=== PATIENT | male | born 1995 | race Hispanic/Latino ===

== ENCOUNTER 2024-09-03 17:43 | Inpatient (IN) | payer OTHER, SELFPAY ==
[2024-09-03] VITALS (14 sets, daily range): BP systolic 97–136; BP diastolic 70–90; BMI 21.7
[2024-09-03] MEDS: TYLENOL 1000 MG PO (13:45)
[2024-09-03] MEDS: MOTRIN 400 MG PO (13:46)
--- NOTE | 2024-09-03 15:02 | ED.GENMED ---
History of Present Illness
General
Chief Complaint: Chest Pain
Source: patient
Exam Limitations: none
Time Seen by Provider: 09/03/24 12:53
Nursing documentation reviewed up to this point in time: agreed with
History of Present Illness
History of Present Illness:
Patient without any significant past med history, presents to ED secondary to sudden onset of chest pain with shortness of breath, when he lifted an empty wheelbarrow out of a truck at work. Denies direct trauma. Denies nausea or vomiting. Denies
dizziness. Denies previous history of similar symptoms.
Review of Systems
Review of Systems
Allergies reviewed?: Yes
All Other Systems: ROS reviewed and negative except as documented in HPI and ROS
Constitutional: Reports no symptoms
Respiratory: Reports trouble breathing
Cardiac: Reports chest pain
ABD/GI: Reports no symptoms
Musculoskeletal: Reports no symptoms
Skin: Reports no symptoms
Neurological: Reports no symptoms
Phy Exam
Physical Exam
Physical Exam:
Physical Exam
General: mild painful distress, not acutely ill. afebrile
Head: nc/at. eomi
Neck: supple. no meningeal signs.
Heart: s1/s2 regular rate and rhythm, no murmur. equal radial pulses.
Lungs: mild respiratory distress. diminished breath sounds over right lung.
Abdomen: normal bowel sounds. not tender.
Neuro: alert and oriented. no focal neurological deficits
Skin: no rash
Psychiatric: well kept. interactive and cooperative
Extremities: no edema. no calf tenderness.
Scores
Heart Score for Chest Pain Patients
STEMI patient?: Not applicable
Course
Orders/Labs/Results
Orders:
Orders
09/03/24 12:28
Electrocardiogram (*1) Urgent
Reason for Study: Chest Pain
09/03/24 12:53
CR Chest - 2 Views Urgent
Comment:
Reason For Exam: chest pain
09/03/24 13:15
Acetaminophen [Tylenol] 1,000 mg PO NOW STA
Ibuprofen [Motrin] 400 mg PO NOW STA
09/03/24 14:54
IRAD CONSULT Urgent
Consulting Provider: Shivam Christopher
Was physician already notified: Yes
Reason for Consult/Procedure: Chest tube placement
Acknowledgement that appropriate orders are entered: Yes
09/03/24 14:59
Complete Blood Count/With Diff Urgent
Comprehensive Metabolic Panel Urgent
PT/INR [Prothrombin Time] Urgent
PTT Urgent
09/03/24 Dinner
Full Liquids
At Your Request: Full Participation
Does patient need a safe tray?: No
09/03/24 15:34
Admit/Transfer Patient As Directed
Co-Sign Provider:
Level of Care: Inpatient admission
Assign to:: Telemetry
Physician / Group: Rodger Barbosa
Diagnosis: Spontaneous Large Pneumothorax
Reason for Telemetry: Other
Other Reason for Telemetry: pneumothorax
Date to Stop Telemetry: 09/05/24
Time to Stop Telemetry: 11:00
Reason for Hospitalization: Spontaneous Large Pneumothorax
Expected length of stay greater than two midnights?: Yes
ELOS- Estimated Length of Stay in days: 3
I certify the patient meets the requirements for IP care: Yes
09/03/24 15:35
PRN Pain Medication Management As Directed
May give lesser potent ordered pain med per pt: Yes
preference::
Protocol:: Medication orders for pain may be administered in a
manner that supports deferring to patient preference
when the pt is:
- Requesting an ordered lesser potent pain medication.
Least to most potent pain medications are defined
as: acetaminophen < NSAID < tramadol < opioids
(morphine, oxycodone, hydromorphone).
- Requesting a lesser dose of the same medication IF
ORDERED.
- Requesting a less intrusive route of administration
if both routes are prescribed by the provider (PO <
IV).
09/03/24 15:38
Code Status As Directed
Resuscitation Status: Full Code
09/03/24 15:42
PULMONARY CONSULT Routine
Consulting Provider: Justin Harden
Was physician already notified: Yes
09/03/24 16:34
Chest Tube As Directed
Location: right
To suction: Yes
Suction to __ centimeters of water: -20
May ambulate with suction off?: Yes
Comment: RECORD OUTPUT FROM CHEST TUBE EVERY SHIFT
09/03/24 17:43
Ketorolac [Toradol] 30 mg IV NOW STA
09/03/24 18:49
Acetaminophen [Tylenol] 650 mg PO Q4HPRN PRN
Heparin 5,000 units SC Q8
Ketorolac [Toradol] 15 mg IV Q6HPRN PRN
09/03/24 18:49
Activity As Directed
Activity Level: With Assistance
Vital Signs As Directed
Frequency: Per unit guidelines
DX Deep Vein Thrombosis Video Routine
09/04/24 07:09
Basic Metabolic Panel IN AM
Complete Blood Count/No Diff IN AM
09/05/24 06:00
Basic Metabolic Panel IN AM
Complete Blood Count/No Diff IN AM
09/05/24 11:00
DC Protocol for Telemetry ONCE
09/06/24 06:00
Basic Metabolic Panel IN AM
Complete Blood Count/No Diff IN AM
Abnormal Lab Results
09/03/24
14:59
WBC 15.0 H 10^3/uL
(4.8-10.8)
MCH 32.0 H pg
(27.0-31.0)
Abs Immat Gran (auto) 0.1 H 10^3/uL
(0-0.05)
Absolute Neuts (auto) 12.5 H 10^3/uL
(1.4-6.5)
Absolute Monos (auto) 1.0 H 10^3/uL
(0.1-0.6)
Neutrophils % 83.4 H %
(42.2-75.2)
Lymphocytes % 9.1 L %
(20.5-51.1)
Creatinine 0.6 L mg/dL
(0.7-1.3)
Glucose 113 H mg/dl
(70-99)
Alkaline Phosphatase 134 H U/L
(38-126)
Total Protein 8.8 H g/dl
(6.3-8.2)
Albumin 5.4 H g/dl
(3.5-5.0)
09/03/24 14:59
09/03/24 14:59
Vital Signs
Initial and Last Documented VS:
Initial Vital Signs
Temp Pulse Resp BP Pulse Ox
98.1 F 108 18 132/90 94
09/03/24 12:32 09/03/24 12:32 09/03/24 12:32 09/03/24 12:32 09/03/24 12:32
Last Documented Vital Signs
Temp Pulse Resp BP Pulse Ox
97.6 F 86 16 118/77 98
09/04/24 11:30 09/04/24 11:30 09/04/24 11:30 09/04/24 11:30 09/04/24 11:30
MDM/Problems Addressed
MDM/Problems Addressed:
History, exam, and chest x-ray consistent with spontaneous large right-sided pneumothorax.
Discussed with NICOLE Chow - will place chest tube.
Will admit to hospitalist service afterwards. Pulmonary () notified via [employer].
*Critical Care Note
Total Time (30-74mins, 75-104mins- exclusive of procedures): Not Applicable
ED Attending Note
-
Portions of this chart may have been created with voice recognition software.� Occasional wrong word or��sound alike� substitutions may have occurred due to the inherent limitations of voice recognition software.
Discharge Plan
Departure
Patient Disposition: Admit
Date of Disposition: 09/03/24
Time of Disposition: 15:10
Admit to: Telemetry
Presentation/result/management discussed w/ accepting MD/DO: Hospitalist
Discharge Problem:
Pneumothorax
Interventions
Interventions:
*Risk Screen - Suicide Last Done: 09/03/24 12:32
*General Assessment Last Done: 09/03/24 12:32
*Neglect/Abuse Screening Last Done: 09/03/24 12:32
ED- Fall Risk Assessment Last Done: 09/03/24 18:28
*ED COVID-19 Vaccine History Last Done: 09/03/24 18:05
*Nursing Disposition Last Done: 09/03/24 18:28
ED- Cardiac Assessment Last Done: 09/03/24 13:45
Discharge Date and Time
Discharge Date/Time: 09/03/24 18:25
[2024-09-03 15:07] LABS: % Basophils 0.4 % (0-2); % Eosinophils 0.1 % (0-6); % Immature Granulocytes 0.5 % (0-0.5); % Lymphocytes 9.1 % (20.5-51.1); % Monocytes 6.5 % (1.7-9.3); % Neutrophils 83.4 % (42.2-75.2); Absolute Basophils 0.1 10^3/uL (0-0.2); Absolute Immature Granulocytes 0.1 10^3/uL (0-0.05); Absolute Lymphocytes 1.4 10^3/uL (1.2-3.4); Absolute Neutrophils 12.5 10^3/uL (1.4-6.5); Hematocrit 45.2 % (39.0-52.0); Hemoglobin 15.5 g/dL (13.0-18.0); Mean Corp Hgb Conc. 34.3 g/dL (33.0-37.0); Mean Corpuscular Volume 93.2 fL (80.0-94.0); Mean Platelet Volume 9.1 fL (7.4-10.4); Nucleated Red Blood Cells % 0 % (-); Platelet Count 283 10^3/uL (130-400); Red Blood Cell Count 4.85 10^6/uL (4.70-6.10); Red Cell Dist. Width 12.2 % (11.5-14.5)
--- NOTE | 2024-09-03 15:09 | HPS.HSE ---
Family Physician
-
Family Physician:
Chief Complaint
-
Chest pain/right side back pain
History of Present Illness
Patient is a 28-year-old male with no significant past medical history who reported that during work had acute onset of chest pain and right sided back pain associated with shortness of breath when lifting an empty wheelbarrow out of a truck at
work. Reports pain with deep breathing. Denies any other symptoms, no recent shortness of breath or chest discomfort.
Medical History
Past Medical History
Past Medical History: Reports None
Past Surgical History: Reports None
Social History
Tobacco: Non-smoker
Alcohol: Occasional (2-3x a week a few drinks)
Drug: Marijuana (smokes a few times a week)
Personal: Single
Living: With Roomate
Employment: Employed
Family History
Family History: Not pertinent
Allergies / Home Medications
Allergies reflects when Allergies were last updated in [facility].
Home Medications with original date entered in [facility]
Allergy/Medication List:
Allergies
Allergy/AdvReac Type Severity Reaction Status Date / Time
No Known Allergies Allergy Verified 09/03/24 12:36
Review of Systems
-
History Source: Patient
Constitutional: Reports No Symptoms
EENT: Reports No Symptoms
Respiratory: Reports Trouble Breathing (shortness of breath)
Cardiac: Reports Chest Pain
Abdomen/GI: Reports No Symptoms
: Reports No Symptoms
Musculoskeletal: Reports No Symptoms
Skin: Reports No Symptoms
Neurological: Reports No Symptoms
Endocrine: Reports No Symptoms
Hematologic/Lymphatic: Reports No Symptoms
Psych: Reports No Symptoms
Physical Exam
Vital Signs
Vital Signs
Temp Pulse Resp BP Pulse Ox
98.1 F 104 26 133/75 100
09/03/24 12:32 09/03/24 15:01 09/03/24 15:01 09/03/24 15:01 09/03/24 15:01
Physical Exam
General: Well Developed, Well Nourished, No Apparent Distress, Comfortable and Conversant
HEENT: NormoCephalic, Moist mucous membranes, Atraumatic, PERRLA, [place] Conjunctivae, Nose Appears Normal and Ears Appear Normal
Respiratory: Clear, Non Labored Respirations and Decreased Breath Sounds (decreased on right side); No Wheezes, Rales, Rhonchi or Crackles
Cardiac: S1/S2 and Regular Rhythm; No Murmur or Rub
Breast: Deferred by me
GI: Soft, Non Tender, Non Distended and Normal Bowel Sounds; No Organomegaly
Rectal: Deferred by Provider
Genito-urinary: Deferred by me
Musculoskeletal: No Clubbing, No Cyanosis and No Edema
Skin: Warm and IV/Catheter Site; No Rash
Neuro: Awake, Alert, AO x 3 and Nonfocal/grossly intact
Hematologic/Lymphatic: No Lymphadenopathy
Psych: Intact Judgment/Insight
Laboratory Results
-
09/03/24 14:59
Data Reviewed
-
Diagnostic Radiology: Report Reviewed by me (CXR: here is a very large right-sided pneumothorax. There is near complete collapse of the right lung. Left lung is clear. The heart is not enlarged. Mediastinal silhouette is within normal limits. The
left pulmonary vasculature is within normal limits. No acute osseous abnormality is seen.)
Medical Tests (Nuc Med, Echo, EKG etc): Report Reviewed by me (EKG: NORMAL SINUS RHYTHM)
Lab Data: Labs Reviewed by me (WBC 15.0, Neut 83.4)
Impression/Plan
-
IMPRESSION/PLAN:
#Spontaneous Pneumothorax First Episode
Acute onset of right sided back pain and chest pain associated with shortness of breath upon lifting empty wheelbarrow from truck
Denies any trauma
CXR: Very large right pneumothorax.
EKG: Normal Sinus Rhythm
- Admit to Telemetry
- Maintain SpO2 >94%
- Pain management regimen
- IR Consult for CT placement
- Pulmonary Consult for management of CT
Full Code
DVT Prophylaxis: Sq Heparin
[2024-09-03 15:22] LABS: ALT (SGPT) 33 U/L (0-50); AST (SGOT) 38 U/L (17-59); Albumin 5.4 g/dl (3.5-5.0); Alkaline Phosphatase 134 U/L (38-126); Blood Urea Nitrogen 11 mg/dl (9-20); Calcium 10.1 mg/dl (8.4-10.2); Carbon Dioxide 23 mmol/L (22-30); Chloride 102 mmol/L (98-107); Estimated Creatinine Clearance > 125 ml/min; Glucose 113 mg/dl (70-99); Sodium 139 mmol/L (135-145); Total Bilirubin 0.4 mg/dl (0.2-1.3); Total Protein 8.8 g/dl (6.3-8.2); eGFR > 60.00
--- NOTE | 2024-09-03 15:23 | W.PN.UPDATE ---
Update Note
Progress Note Update
This note serves as an addendum to the H&P by pump and blower operator Michelle Bonilla
HPI
28M no significant PMH seen at ER:
- sudden onset of Rt sided CP and back pain upon lifting while wheel mcgrath
- Denied trauma
- No prior HX PTX
Reviewed VS: Tachycardic , tachypneic, Normotensive POx 100% in NRM
PE
Gen: NAD
HEENT:wearing NRM
Neck: supple
Lungs: decreased BS at Rt lung
Cor: Tachycardic
Abdomen: benign exam
SOIL BIOLOGY TEACHER: AAO3
MS: defer
Psych: nl affect
Data
WCC 15
Pending INR
Pending CMP
CXR prelim read: Rt sided large PTX
EKG: NSR nl EKG
NO PRIOR DH t admission:
ASSESSMENT & PLAN
First episode of spontaneous large PTX of Rt lung
Hemodynamically stable
- PRN analgesia
- O2 to keep POx > 94%
- IR consulted for CT placement
- Pul consult for spontaneous PTX evaluation
- CTS for CT management : defer serial CXR to CTS
DVT Px: SQH
Full code
IP TLM
[2024-09-03 16:05] LABS: INR 0.96; PT 13.3 Sec (11.4-14.6)
[2024-09-03 16:06] LABS: APTT 32.4 Sec (23.4-35.0)
--- NOTE | 2024-09-03 16:33 | W.PN.UPDATE ---
Update Note
Progress Note Update
Right sided 14 [place]ian chest tube placed, with near complete reexpansion of lung. Patient tolerated procedure well.
[2024-09-03] MEDS: TORADOL 30 MG IV (18:07)
[2024-09-03] MEDS: TYLENOL 650 MG PO (20:26)
[2024-09-03] MEDS: HEPARIN 5000 UNITS SC (20:27)
[2024-09-04] MEDS: TORADOL 15 MG IV ×4 (00:15→23:04)
[2024-09-04] MEDS: HEPARIN SC (00:19)
[2024-09-04 03:00] VITALS: BP 115/80
--- NOTE | 2024-09-04 07:29 | W.PN.HOSP.TC ---
Today's Communication/Plan
-
Maintain chest tube
pain control
eventual trial clamp as per Pulm/IR
Assessment / Plan
Assessment / Plan
Physical Exam
General: No acute distress appears comfortable at this time
HEENT: NormoCephalic Atraumatic PERRLA
Respiratory: CTAB, right sided chest tube in place, some restriction in inspiration d/t pain
Cardiac: S1/S2 and Regular Rhythm; No Murmur or Rub
GI: Soft, Non Tender, Non Distended and Normal Bowel Sounds; No Organomegaly
Musculoskeletal: No Clubbing, No Cyanosis and No Edema
Skin: Warm and IV/Catheter Site; No Rash
Neuro: AOx3
Psych: Calm
28M with no significant past medical history who reported that during work he had acute onset of chest pain and right sided back pain associated with shortness of breath when lifting an empty wheelbarrow out of a truck at work. Reported pain with
deep breathing. Denies any other symptoms, no recent shortness of breath or chest discomfort. ED eval notable for spontaneous large right pneumothorax current resolved with right Chest Tube placed by IR.
#Spontaneous Pneumothorax First Episode
Acute onset of right sided back pain and chest pain associated with shortness of breath upon lifting empty wheelbarrow from truck
Denies any trauma
CXR: Very large right pneumothorax.
EKG: Normal Sinus Rhythm
- Telemetry
- Maintain SpO2 >94%
- Pain management regimen
- IR Consult appreciated Chest tube placed with complete resolution of PTX noted
- Pulmonary Consult appreciated
dvt ppx heparin
I spent a total of 45 minutes with the patient or on the floor. More than 50% of this time involved counseling and coordination of care.
Anticipated Discharge: 24 - 48 hours
Subjective/Interval History
-
Date of Service: September 04, 2024
No acute distress resting comfortably in bed. Chest tube in placed right side. Reports pain controlled with current pain regimen. Respiratory status stable on room air
Objective Data
-
Labs:
Laboratory Results
09/04/24
07:09
WBC Pending
Hgb Pending
Hct Pending
Plt Count Pending
Sodium Pending
Potassium Pending
Chloride Pending
Carbon Dioxide Pending
BUN Pending
Creatinine Pending
Glucose Pending
Calcium Pending
Vital Signs:
Vital Signs
Temp Pulse Resp BP Pulse Ox
97.9 F 69 14 115/80 99
09/04/24 03:00 09/04/24 03:00 09/04/24 03:00 09/04/24 03:00 09/04/24 03:00
I&O
09/03/24 09/04/24 09/05/24
06:59 06:59 06:59
Intake Total 120 / 120
Balance 120 / 120
[2024-09-04 07:30] VITALS: BP 119/71
[2024-09-04 07:52] LABS: Hematocrit 43.1 % (39.0-52.0); Hemoglobin 15.1 g/dL (13.0-18.0); Mean Corpuscular Hgb 32.1 pg (27.0-31.0); Mean Corpuscular Volume 91.7 fL (80.0-94.0); Mean Platelet Volume 9.7 fL (7.4-10.4); Platelet Count 253 10^3/uL (130-400); Red Cell Dist. Width 12.1 % (11.5-14.5); White Blood Cell Count 9.4 10^3/uL (4.8-10.8)
[2024-09-04] MEDS: HEPARIN 5000 UNITS SC ×3 (08:17→23:02)
[2024-09-04 08:20] LABS: Blood Urea Nitrogen 11 mg/dl (9-20); Calcium 9.6 mg/dl (8.4-10.2); Carbon Dioxide 27 mmol/L (22-30); Chloride 102 mmol/L (98-107); Estimated Creatinine Clearance > 125 ml/min; Glucose 105 mg/dl (70-99); Potassium 4.5 mmol/L (3.5-5.1); Sodium 140 mmol/L (135-145); eGFR > 60.00
--- NOTE | 2024-09-04 10:21 | CON.PUL ---
Consultation
Consultation Request
Date/Time Consultation Requested: 09/03/24
Date/Time Consultation Performed: 09/04/24
Performing Provider: Samantha
Reason for Consultation: PTx
Medical History
-
History of Present Illness:
Patient is a 28-year-old male with no significant past medical history presenting to ER for acute onset of right sided chest pain that began the day of admission. This is associated with shortness of breath, pain with deep breathing. He notes
that it was triggered by heavy lifting of an empty wheelbarrow. Chest x-ray obtained in the ER demonstrating spontaneous pneumothorax, chest tube placed by IR. He has never had previous pneumothorax in the past. He is a non-smoker but does use
marijuana.
Past Medical History
Past Medical History: None
Past Surgical History: None
Social History
Tobacco: Non-smoker
Alcohol: None
Drug: Marijuana
Family History
Family History: Reviewed & Not Pertinent
Allergies / Home Medications
Allergies
Allergy/AdvReac Type Severity Reaction Status Date / Time
No Known Allergies Allergy Verified 09/03/24 12:36
Home Medications
�Medication �Instructions �Recorded �Confirmed �Last Taken �Type
No Meds [No Current Medications] 09/03/24 09/03/24 Unknown History
Review of Systems
-
History Source: Patient
All other systems: Negative unless noted
Vitals / Labs / Diagnostic Testing
Vital Signs
Temp Pulse Resp BP Pulse Ox
98.3 F 79 16 119/71 98
09/04/24 07:30 09/04/24 07:30 09/04/24 07:30 09/04/24 07:30 09/04/24 07:30
Lab Data
09/04/24 07:09
09/04/24 07:09
Laboratory Results
09/03/24
14:59
PT 13.3
INR 0.96
APTT 32.4
Diagnostic Testing:
Physical Exam
-
HEENT: Normocephalic, Anicteric and Moist Mucous Membranes
Cardiovascular: S1/S2 and Regular Rhythm
Respiratory: Clear, Non-Labored Respirations and Other (chest tube)
GI: Soft, Non Distended and Non Tender
Neurology: Awake, Alert, Oriented and No Motor Deficits
Skin: Warm, Dry and Good Color
General: Comfortable and Other (NAD)
Assessment
-
Patient is a 28-year-old male with no significant past medical history presenting to ER for acute onset of right sided chest pain that began the day of admission. This is associated with shortness of breath, pain with deep breathing. He notes
that it was triggered by heavy lifting of an empty wheelbarrow. Chest x-ray obtained in the ER demonstrating spontaneous pneumothorax, chest tube placed by IR. We are consulted for evaluation.
Acute right sided spontaneous pneumothorax status post chest tube placement 09/03 by IR
Acute onset right-sided chest pain, pleuritic
Shortness of breath
Leukocytosis, mild
Marijuana use
Plan
No oxygen was needed on admission, currently saturating >90% on RA
No prior history of lung disease is noted
Suspect patient has spontaneous PTX from cough, possibly THC use
CXR/CT reviewed, repeat CXR today post placement
If doing well, can trial clamp/removal in next 24 hours
Pain control, can ambulate in room
Will need outpatient pulmonary evaluation in our office for PFTs and 6MWT
Reviewed with patient
We will follow
Diagnostic Data
Chest X-Ray: 09/03/24 Very large right pneumothorax.
CT Scan:
Echo:
PFT's:
Reports and relevant images were personally reviewed.
Total time spent on this consultation __50__ minutes which includes review of history, physical exam, medications, laboratory data, personal review of imaging, extensive review of outpatient records, discussion with care team and respiratory therapy.
[2024-09-04 11:30] VITALS: BP 118/77
[2024-09-04 15:50] VITALS: BP 127/87
[2024-09-04 19:15] VITALS: BP 112/74
[2024-09-04 23:30] VITALS: BP 121/75
[2024-09-05 03:15] VITALS: BP 114/68
--- NOTE | 2024-09-05 07:08 | W.PN.HOSP.TC ---
Today's Communication/Plan
-
chest tube clamp as per pulm
pain control
monitor resp status
possible discharge tomorrow if chest tube can be removed by then
Assessment / Plan
Assessment / Plan
Physical Exam
General: No acute distress appears comfortable at this time
HEENT: NormoCephalic Atraumatic PERRLA
Respiratory: CTAB, right sided chest tube in place, some restriction in inspiration d/t pain
Cardiac: S1/S2 and Regular Rhythm; No Murmur or Rub
GI: Soft, Non Tender, Non Distended and Normal Bowel Sounds; No Organomegaly
Musculoskeletal: No Clubbing, No Cyanosis and No Edema
Skin: Warm and IV/Catheter Site; No Rash
Neuro: AOx3
Psych: Calm
28M with no significant past medical history who reported that during work he had acute onset of chest pain and right sided back pain associated with shortness of breath when lifting an empty wheelbarrow out of a truck at work. Reported pain with
deep breathing. Denies any other symptoms, no recent shortness of breath or chest discomfort. ED eval notable for spontaneous large right pneumothorax current resolved with right Chest Tube placed by IR.
#Spontaneous Pneumothorax First Episode
Acute onset of right sided back pain and chest pain associated with shortness of breath upon lifting empty wheelbarrow from truck
Denies any trauma
CXR: Very large right pneumothorax.
EKG: Normal Sinus Rhythm
- Telemetry
- Maintain SpO2 >94%
- Pain management regimen
- IR Consult appreciated Chest tube placed with complete resolution of PTX noted
- Pulmonary Consult appreciated chest tube clamped follow up CXR remains stable, possible discharge tomorrow
dvt ppx heparin
I spent a total of 40 minutes with the patient or on the floor. More than 50% of this time involved counseling and coordination of care.
Anticipated Discharge: Within 24 hours
Subjective/Interval History
-
Date of Service: September 05, 2024
No acute distress. Overall reports feeling well. Pleuritic chest pain persists but controlled with current pain regimen. Chest tube clamped as per pulm, respiratory status remains stable room air
Objective Data
-
Labs:
Laboratory Results
09/05/24
06:00
WBC Pending
Hgb Pending
Hct Pending
Plt Count Pending
Sodium Pending
Potassium Pending
Chloride Pending
Carbon Dioxide Pending
BUN Pending
Creatinine Pending
Glucose Pending
Calcium Pending
Vital Signs:
Vital Signs
Temp Pulse Resp BP Pulse Ox
98.0 F 82 16 114/68 98
09/05/24 03:15 09/05/24 03:15 09/05/24 03:15 09/05/24 03:15 09/05/24 03:15
I&O
09/04/24 09/05/24 09/06/24
06:59 06:59 06:59
Intake Total 120 / 120 1380 / 1380
Balance 120 / 120 1380 / 1380
[2024-09-05 07:53] VITALS: BP 110/71
[2024-09-05] MEDS: HEPARIN 5000 UNITS SC ×2 (07:58→16:53)
[2024-09-05 08:06] LABS: Hematocrit 44.9 % (39.0-52.0); Hemoglobin 15.3 g/dL (13.0-18.0); Mean Corp Hgb Conc. 34.1 g/dL (33.0-37.0); Mean Corpuscular Hgb 32.6 pg (27.0-31.0); Mean Corpuscular Volume 95.7 fL (80.0-94.0); Mean Platelet Volume 9.7 fL (7.4-10.4); Platelet Count 264 10^3/uL (130-400); Red Blood Cell Count 4.69 10^6/uL (4.70-6.10); Red Cell Dist. Width 12.4 % (11.5-14.5); White Blood Cell Count 9.2 10^3/uL (4.8-10.8)
[2024-09-05 08:32] LABS: Blood Urea Nitrogen 16 mg/dl (9-20); Calcium 9.5 mg/dl (8.4-10.2); Carbon Dioxide 28 mmol/L (22-30); Chloride 104 mmol/L (98-107); Estimated Creatinine Clearance > 125 ml/min; Glucose 95 mg/dl (70-99); Potassium 4.6 mmol/L (3.5-5.1); Sodium 142 mmol/L (135-145); eGFR > 60.00
[2024-09-05 10:54] VITALS: BP 121/80
--- NOTE | 2024-09-05 13:07 | PTCARENOTE ---
patient reports 'twinges of pain' with deep breath or coughing. denied need for analgesia. tolerating diet, chest tube maintained, no evidence of leak or crepitus, vss, will continue to monitor.
--- NOTE | 2024-09-05 13:50 | W.PN.PUL3 ---
Today's Communication / Plan
-
clampled chest tube
CXR 4-5pm and in AM
possibly DC chest tube in AM.
Assessment
-
Patient is a 28-year-old male with no significant past medical history presenting to ER for acute onset of right sided chest pain that began the day of admission. This is associated with shortness of breath, pain with deep breathing. He notes
that it was triggered by heavy lifting of an empty wheelbarrow. Chest x-ray obtained in the ER demonstrating spontaneous pneumothorax, chest tube placed by IR. We are consulted for evaluation.
Acute right sided spontaneous pneumothorax status post chest tube placement 09/03 by IR
Acute onset right-sided chest pain, pleuritic
Shortness of breath
Leukocytosis, mild
Marijuana use
Plan
No oxygen was needed on admission, currently saturating >90% on RA
No prior history of lung disease is noted
Suspect patient has spontaneous PTX from cough, possibly THC use
CXR/CT reviewed, repeat CXR today post placement
Chest tube with no airleak with cough or deep inspiration
CXR 09/05/2024, showed no evidence for Pneumothorax
Pain control, can ambulate in room
-
Chest tube clamped 09/05/2024 145PM, repeat CXR at 4pm and tomorrow in AM. If no recurrent ptx then will DC tube at that time.
-
Advised to abstain from smoking marijuana and strenous activity for at least 3-4 weeks.
Will need outpatient pulmonary evaluation in our office for PFTs and 6MWT, possibly a CT chest as well.
Reviewed with patient
We will follow
Diagnostic Data
Chest X-Ray: 09/03/24 Very large right pneumothorax.
CT Scan:
Echo:
PFT's:
Reports and relevant images were personally reviewed.
Subjective Data
-
Date of Service:
Date of Service: September 05, 2024
Chief Complaint: Pulmonary Follow Up (Pneumothorax)
Subjective:
Denies any complaints.
Review of Systems
Cardiopulmonary: Dyspnea (n), Dyspnea on Exertion (n) and Chest Pain (n)
Objective Data
Data Reviewed
Vital Signs / I&O / Oxygen:
Vital Signs
Temp Pulse Resp BP Pulse Ox
97.8 F 82 17 121/80 97
09/05/24 10:54 09/05/24 10:54 09/05/24 10:54 09/05/24 10:54 09/05/24 10:54
Intake and Output
09/04/24 09/05/24 09/06/24
06:59 06:59 06:59
Intake Total 120 / 120 1380 / 1380
Balance 120 / 120 1380 / 1380
SaO2 97
Nasal Cannula flow liters per 15
minute
Physical Exam
General: Comfortable
HEENT: Normocephalic
Cardiovascular: S1-S2
Respiratory: Non-Labored Respirations and Chest Tube (no air leak)
GI: Soft and Non Distended
Neurology: Awake, Alert, AO x 3 and No Motor Deficits
Skin: Warm
Labs/Micro/Reports
Lab Data
09/05/24 07:07
09/05/24 07:07
[2024-09-05 14:48] VITALS: BP 125/84
--- NOTE | 2024-09-05 15:27 | PTCARENOTE ---
Addendum entered by Monica Michele RN 09/05/24 17:20:
patient transferred to chair with help with chest tube. chest tube clamped since Dr. Harden clamped it at 1350, for CXR at 1600, will continue to monitor.
Original Note:
patient transferred to chair with help with chest tube. chest tube clamped since Dr. Harden clamped it, for CXR at 1600, will continue to monitor.
--- NOTE | 2024-09-05 17:28 | CM ---
Alert awake oriented patient who lives with his Anne-Marie and 3 children who lives in a 2 story home with 5 step to enter and 10 steps to bed and bathroom. He is independent in driving and in all activities of daily living.He was offered VN he
declined need.He was given Domitila Steven handout. Spoke with MALICK Johnson about no insurance . She said she saw him and he needs to provide information to her to submit hopsital coverage.
No VN hx / No SNF history
Pharmacy [facility] [id number]
PCP none Domitila Steven handout given
PLAN Home no needs
[2024-09-05] MEDS: TORADOL 15 MG IV (18:41)
[2024-09-05 23:40] VITALS: BP 115/80
[2024-09-06 07:10] VITALS: BP 114/77
[2024-09-06] MEDS: HEPARIN 5000 UNITS SC (07:28)
--- NOTE | 2024-09-06 09:03 | W.PN.HOSP.TC ---
Addendum entered and electronically signed by Jennifer Curry MD 09/06/24 18:02:
Repeat X-ray noted possible small right apical pneumothorax following removal of chest tube
-hold discharge for now
-repeat CXR ordered for AM
-CXR to be repeated stat if worsening SOB/respiratory status develops
Addendum entered and electronically signed by Jennifer Curry MD 09/06/24 16:31:
chest tube removed by IR
Repeat chest X-ray pending, patient ok for discharge if repeat CXR remains neg for Pneumothorax
Original Note:
Today's Communication/Plan
-
discharge today following chest tube removal by IR
Assessment / Plan
Assessment / Plan
Physical Exam
General: No acute distress appears comfortable at this time
HEENT: NormoCephalic Atraumatic PERRLA
Respiratory: CTAB, right sided chest tube in place, some restriction in inspiration d/t pain
Cardiac: S1/S2 and Regular Rhythm; No Murmur or Rub
GI: Soft, Non Tender, Non Distended and Normal Bowel Sounds; No Organomegaly
Musculoskeletal: No Clubbing, No Cyanosis and No Edema
Skin: Warm and IV/Catheter Site; No Rash
Neuro: AOx3
Psych: Calm
28M with no significant past medical history who reported that during work he had acute onset of chest pain and right sided back pain associated with shortness of breath when lifting an empty wheelbarrow out of a truck at work. Reported pain with
deep breathing. Denies any other symptoms, no recent shortness of breath or chest discomfort. ED eval notable for spontaneous large right pneumothorax current resolved with right Chest Tube placed by IR.
#Spontaneous Pneumothorax First Episode
Acute onset of right sided back pain and chest pain associated with shortness of breath upon lifting empty wheelbarrow from truck
Denies any trauma
CXR: Very large right pneumothorax.
EKG: Normal Sinus Rhythm
- Telemetry
- Maintain SpO2 >94%
- Pain management regimen
- IR Consult appreciated Chest tube placed with complete resolution of PTX noted
- Pulmonary Consult appreciated chest tube clamped CXR's stable >12hr since clamping
-Planned for chest tube discontinuation with IR today, medically stable for discharge home following removal.
dvt ppx heparin
Total Time Preparing Discharge __40 minutes including examination of the patient, summary of the hospital stay, instructions for continuing care to all relevant caregivers; and preparation of discharge records, prescriptions, and referral
forms if necessary.
Anticipated Discharge: Today
Subjective/Interval History
-
Date of Service: September 06, 2024
no acute distress sitting up comfortably bed. Overall reports feeling well. Denies new acute issues. Stable respiratory status room air, eager to go home
Objective Data
-
Vital Signs:
Vital Signs
Temp Pulse Resp BP Pulse Ox
97.9 F 95 19 114/77 96
09/06/24 07:10 09/06/24 07:10 09/06/24 07:10 09/06/24 07:10 09/06/24 07:10
I&O
09/05/24 09/06/24 09/07/24
06:59 06:59 06:59
Intake Total 1380 / 1380 750 / 750
Output Total 900 / 900
Balance 1380 / 1380 -150 / -150
--- NOTE | 2024-09-06 12:51 | W.PN.PUL3 ---
Today's Communication / Plan
-
Doing well, stable on RA
Chest tube clamped >12 hours, CXR with resolved ptx
Discontinue chest tube, discussed with IR
Discharge planning per team to follow
OP FU recommended
Assessment
-
Patient is a 28-year-old male with no significant past medical history presenting to ER for acute onset of right sided chest pain that began the day of admission. This is associated with shortness of breath, pain with deep breathing. He notes
that it was triggered by heavy lifting of an empty wheelbarrow. Chest x-ray obtained in the ER demonstrating spontaneous pneumothorax, chest tube placed by IR. We are consulted for evaluation.
Acute right sided spontaneous pneumothorax status post chest tube placement 09/03 by IR
Acute onset right-sided chest pain, pleuritic
Shortness of breath
Leukocytosis, mild
Marijuana use
Plan
No oxygen was needed on admission, currently saturating >90% on RA
No prior history of lung disease is noted
Suspect patient has spontaneous PTX from cough, possibly THC use
CXR/CT reviewed, repeat CXR today post placement
Chest tube with no airleak with cough or deep inspiration
CXR 09/05/2024, showed no evidence for Pneumothorax
Pain control, can ambulate in room
-
Chest tube clamped 09/05/2024 145PM, repeat CXR at 4pm and tomorrow in AM.
Reviewed, ptx remains resolved
If no recurrent ptx then will DC tube at that time.
Discussed with IR-discontinue tube today
-
Advised to abstain from smoking marijuana and strenuous activity for at least 3-4 weeks.
Will need outpatient pulmonary evaluation in our office for PFTs and 6MWT, possibly a CT chest as well.
Reviewed with patient
Discharge planning per team
Diagnostic Data
Chest X-Ray: 09/03/24 Very large right pneumothorax.
Repeat CXR-resolved
CT Scan:
Echo:
PFT's:
Reports and relevant images were personally reviewed.
Total time spent on this encounter __40__ minutes which includes review of history, physical exam, medications, laboratory data, personal review of imaging, extensive review of outpatient records, discussion with care team and respiratory therapy.
Subjective Data
-
Date of Service:
Date of Service: September 06, 2024
Chief Complaint: Pulmonary Follow Up (Pneumothorax)
Subjective:
Doing well, stable on RA
Ambulating in room
Chest tube clamped
Objective Data
Data Reviewed
Vital Signs / I&O / Oxygen:
Vital Signs
Temp Pulse Resp BP Pulse Ox
97.9 F 95 19 114/77 96
09/06/24 07:10 09/06/24 07:10 09/06/24 07:10 09/06/24 07:10 09/06/24 07:10
Intake and Output
09/05/24 09/06/24 09/07/24
06:59 06:59 06:59
Intake Total 1380 / 1380 750 / 750
Output Total 900 / 900
Balance 1380 / 1380 -150 / -150
SaO2 96
Nasal Cannula flow liters per 15
minute
Physical Exam
General: Comfortable
HEENT: Normocephalic
Cardiovascular: S1-S2
Respiratory: Non-Labored Respirations and Chest Tube (no air leak)
GI: Soft and Non Distended
Neurology: Awake, Alert, AO x 3 and No Motor Deficits
Skin: Warm
Labs/Micro/Reports
Lab Data
09/05/24 07:07
09/05/24 07:07
--- NOTE | 2024-09-06 14:06 | PN.IRAD.UPD ---
Update Note - IRAD
- -
went bedside at 1430 to remove right sided chest tube. cleaned, prepped and draped patient. removed tube with no complaints from patient and dressed with optifoam and vasigauze
[2024-09-06 15:12] VITALS: BP 131/82
--- NOTE | 2024-09-06 16:03 | CM ---
CM following re: discharge planning.
Reviewed pt's chart, met with pt.
According to MD pt will be discharged home today. Pt is aware and he stated his mother will transport home.
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 Pt reports he has been living in [place] for 10 years, undocumented immigrant from [place].
D/C plan: home no needs. Mother to transport.
[2024-09-06] MEDS: HEPARIN SC ×3 (16:05→23:50)
--- NOTE | 2024-09-06 17:59 | PTCARENOTE ---
Chest tube pulled by IR at 15:30, Dr Curry notified. CXR ordered for 17:00. CXR results at 17:30 showed small right pneumothorax. Dr Curry notified and d/c order cancelled. Repeat CXR ordered for tomorrow morning 09/07/24. Pt without signs/symptoms of
respiratory distress. Results explained to patient, patient agreeable to stay until tomorrow. Will continue to monitor.
[2024-09-06] MEDS: TYLENOL 650 MG PO (20:10)
[2024-09-06 23:37] VITALS: BP 134/80
--- NOTE | 2024-09-07 07:44 | W.PN.HOSP.TC ---
Today's Communication/Plan
-
discharge
Assessment / Plan
Assessment / Plan
Physical Exam
General: No acute distress appears comfortable at this time
HEENT: NormoCephalic Atraumatic PERRLA
Respiratory: CTAB, right sided chest tube in place, some restriction in inspiration d/t pain
Cardiac: S1/S2 and Regular Rhythm; No Murmur or Rub
GI: Soft, Non Tender, Non Distended and Normal Bowel Sounds; No Organomegaly
Musculoskeletal: No Clubbing, No Cyanosis and No Edema
Skin: Warm and IV/Catheter Site; No Rash
Neuro: AOx3
Psych: Calm
28M with no significant past medical history who reported that during work he had acute onset of chest pain and right sided back pain associated with shortness of breath when lifting an empty wheelbarrow out of a truck at work. Reported pain with
deep breathing. Denies any other symptoms, no recent shortness of breath or chest discomfort. ED eval notable for spontaneous large right pneumothorax current resolved with right Chest Tube placed by IR.
#Spontaneous Pneumothorax First Episode
Acute onset of right sided back pain and chest pain associated with shortness of breath upon lifting empty wheelbarrow from truck
Denies any trauma
CXR: Very large right pneumothorax.
EKG: Normal Sinus Rhythm
- Telemetry
- Maintain SpO2 >94%
- Pain management regimen
- IR Consult appreciated Chest tube placed with complete resolution of PTX noted
- Pulmonary Consult appreciated chest tube clamped CXR's stable >12hr since clamping
-Chest tube discontinued 09/06 post chest tube removal noted small right apical pneumothorax- stable on repeat CXR noted following morning 09/07
Medically stable for discharge, repeat CXR with primary care provider in 1 week recommended
dvt ppx heparin
Medically stable for discharge home with outpatient follow up recommendations.
Total Time Preparing Discharge __40 minutes including examination of the patient, summary of the hospital stay, instructions for continuing care to all relevant caregivers; and preparation of discharge records, prescriptions, and referral
forms if necessary.
Anticipated Discharge: Today
Subjective/Interval History
-
Date of Service: September 07, 2024
Seen and examined at bedside. No acute distress. reports feeling well. Denies new acute issues. Eager to go home.
Objective Data
-
Vital Signs:
Vital Signs
Temp Pulse Resp BP Pulse Ox
98.0 F 90 17 134/80 97
09/06/24 23:37 09/06/24 23:37 09/06/24 23:37 09/06/24 23:37 09/06/24 23:37
I&O
09/06/24 09/07/24 09/08/24
06:59 06:59 06:59
Intake Total 750 / 750 1020 / 1020
Output Total 900 / 900
Balance -150 / -150 1020 / 1020
[2024-09-07] MEDS: HEPARIN 5000 UNITS SC (08:07)
[2024-09-07 08:13] VITALS: BP 118/77
--- NOTE | 2024-09-07 09:54 | W.DCSUMMARY ---
Discharge Summary
Discharge Data
Date of Admission: 09/03/24
Date of Discharge: 09/07/24
-
Pending Results: No
Discharge Plan
-
Patient Disposition: Home (Routine Discharge)
Discharge Diagnosis/Procedures: Right Sided Spontaneous Pneumothorax treated with chest tube since removed.
Small residual right Apical Pneumothorax, stable
Condition: Good
Diet: Regular
Activity: No strenuous activity
Additional Activity: avoid marijuana and strenuous activity for at least 3 weeks
Driving Restrictions: As prior to admission
Bathing Restrictions: None
Others Tests: Follow up with primary care provider in 1 week of discharge for repeat Chest X-ray to follow up small right apical pneumothorax
Follow up with Pulmonology in 2-4 weeks of discharge for
-pulmonary function tests
-6 minute walk test
-CT chest
Activity Restrictions/Additional Instructions:
Please follow up with primary care provider in 1 week of discharge and Pulmonology in 2-4 weeks of discharge.
Tylenol and Ibuprofen have been prescribed as needed for pain. These medications are available over the counter.
Please take medications as prescribed/recommended and follow up with primary care provider and/or other healthcare provider involved in your care for refills and/or further adjustment to your medication regimen as necessary.
Referrals:
Rocio Hitchcock MD [Active] - in one week
Justin Harden MD [Active] - in two to four weeks
NONE,* [Family Provider] -
Prescriptions:
New
acetaminophen 325 mg Tablet
650 mg PO Q4HPRN PRN (Reason: mild pain/SANDERS/temp> 100.4F) Qty: 30 0RF
ibuprofen 400 mg tablet
400 mg PO Q6H PRN (Reason: Pain) Qty: 30 0RF
Discharge Orders:
Discharge Patient (As Directed); Ordered 09/07/24
Ordered By: Jennifer Curry
Discharge Date and Time
Print Language: WALLISIAN
== END 2024-09-07 13:28 | disposition home or self-care (01) | DRG 201 ==
LOC: 3 WEST ACU 17:43
PROVIDERS: Nurse Practitioner Family; Radiology Vascular & Interventional Radiology; ADMITTING PHYSICIAN Internal Medicine; ATTENDING PHYSICIAN Internal Medicine; EMERGENCY PHYSICIAN Emergency Medicine; OTHER PHYSICIAN Internal Medicine
PROC: 0W9930Z Drainage of Right Pleural Cavity with Drainage Device, Percutaneous Approach (ICD-10-PCS; 2024-09-03)
DX: J93.83 Other pneumothorax (principal)
CPT/HCPCS: 32557; 71045; 71046; 80048; 80053; 85025; 85027; 85610; 85730; 93005; 99152; 99153; 99285; C1729; C1769